=== PATIENT | female | born 1980 | race Caucasian/White ===

== ENCOUNTER 2017-07-15 17:35 | Inpatient (IN) | payer BC ==
[~2017-07-15] VITALS: Ht 152.4 cm; Wt 66.5 kg
[2017-07-15] VITALS (195 sets, daily range): BP systolic 140; BP diastolic 93; PULSE 107; TEMP 98.6; O2SAT 92–100
[~2017-07-15 17:35] MED LIST: BCP TD; LORTAB PO; MOTRIN 600600 MG/TAB PO; PERCOCET 325 MG1 TA2 PO; PHENERGAN 25 TA25 MG PO; PRENATAL1 TA1 PO
[2017-07-15] MEDS ORDERED: PREDNISONE10 MG PO (17:59)
[2017-07-15] MEDS ORDERED: SYMBICORT (18:00)
[2017-07-15] MEDS ORDERED: DIFLUCAN150 MG PO (18:00)
[2017-07-15] MEDS ORDERED: [UNRECOGNIZED DRUG - OTHER] (18:00)
[2017-07-15] MEDS ORDERED: MONODOX100 PO (18:00)
[2017-07-15 18:05] LABS: ADD PATHOLOGY DIFF REVIEW NO; HEMATOCRIT 45.3 % (37.0-47.0); HEMOGLOBIN 14.7 g/dl (12.5-16.0); MEAN CELL VOLUME 99 fl (80.0-100.0); MEAN CORPUSCULAR HEMOGLOBIN 32 pg (27.0-31.0); MEAN CORPUSCULAR HGB CONC 33 g/dl (33.0-37.0); MEAN PLATELET VOLUME 10.6 fl (7.4-10.4); PLATELET COUNT 402 K/mm3 (130-400); RED BLOOD COUNT 4.59 M/mm3 (4.10-5.30); WHITE BLOOD COUNT 18.8 K/mm3 (4.8-10.8)
[2017-07-15 18:10] LABS: ARTERIAL BLD GAS O2 SATURATION 96.6 % (92-100); ARTERIAL BLD GAS TCO2 CT 22.1; ARTERIAL BLOOD GAS HCO3 20.6 meq/L (22-26); ARTERIAL BLOOD GAS PO2 102.9 mmHg (80-100); ARTERIAL BLOOD GAS pH 7.24 (7.35-7.45); OXYHEMOGLOBIN 95.8 %
[2017-07-15 18:11] LABS: ALLEN TEST YES; ALLENS TEST RESULT PASS; ATS? YES
[2017-07-15 18:14] LABS: ADJUSTED CALCIUM 9.2 mg/dL (8.4-10.2); ALANINE AMINOTRANSFERASE 18 U/L (9-52); ALBUMIN 4.1 gm/dL (3.5-5.0); ALKALINE PHOSPHATASE 47 U/L (50-136); ANION GAP 10 mmol/L (7-16); BILIRUBIN,TOTAL 0.5 mg/dL (0.0-1.0); BLOOD UREA NITROGEN 11 mg/dL (7-17); C-REACTIVE PROTEIN 0.7 mg/dL (0.0-0.9); CALCIUM 9.3 mg/dL (8.4-10.2); CARBON DIOXIDE 22 mmol/L (22-30); CHLORIDE 108 mmol/L (98-107); CREATINE KINASE 150 U/L (30-135); CREATININE, serum 0.71 mg/dL (0.52-1.25); GLUCOSE 99 mg/dL (74-106); POTASSIUM 4.4 mmol/L (3.4-5.0); SODIUM 140 mmol/L (137-145); TOTAL PROTEIN 8.1 gm/dL (6.4-8.2)
[2017-07-15 18:23] LABS: B-TYPE NATRIURETIC PEPTIDE 58 pg/mL (0-125)
[2017-07-15 18:29] LABS: INFLUENZA A NEGATIVE; INFLUENZA B NEGATIVE
[2017-07-15 18:30] LABS: TROPONIN-I < 0.012 ng/mL (0.000-0.034)
[2017-07-15 18:37] LABS: EOSINOPHIL 19 % (0-4); LYMPHOCYTE 27 % (20.0-51.0); NEUTROPHILS 50 % (42.0-75.2); PLATELET ESTIMATE INCREASED (NORMAL); TOTAL CELLS COUNTED 100
[2017-07-15 19:46] LABS: ARTERIAL BLD GAS TCO2 CT 20.8; ARTERIAL BLOOD GAS BASE EXCESS -4.4 (-2-2); ARTERIAL BLOOD GAS HCO3 19.7 meq/L (22-26); ARTERIAL BLOOD GAS PO2 97.8 mmHg (80-100); ARTERIAL BLOOD GAS pH 7.38 (7.35-7.45); OXYHEMOGLOBIN 96.1 %
[2017-07-15 19:47] LABS: ALLEN TEST NO; ATS? YES
[2017-07-15] MEDS ORDERED: PROMETHAZINE H118 ML PO (20:41)
[2017-07-15] MEDS ORDERED: ALBUTEROL0.83 MG/ML IH (20:42)
[2017-07-16] VITALS (796 sets, daily range): BP systolic 104–147; BP diastolic 57–107; PULSE 84–124; TEMP 97.1–98.1; O2SAT 93–100
[2017-07-16 03:12] LABS: ALLEN TEST NO; ARTERIAL BLD GAS O2 SATURATION 97.2 % (92-100); ARTERIAL BLD GAS TCO2 CT 19.8; ARTERIAL BLOOD GAS HCO3 18.9 meq/L (22-26); ARTERIAL BLOOD GAS PO2 92.3 mmHg (80-100); ARTERIAL BLOOD GAS pH 7.44 (7.35-7.45); ATS? YES; OXYHEMOGLOBIN 96.5 %
[2017-07-16 05:54] LABS: BASO % 0.5 % (0.0-2.0); EOS % 0.4 % (0-4.0); GRAN # 6.7 (1.4-6.5); GRAN % 87.2 % (42.2-75.2); LYMPH # 0.8 (1.2-3.4); LYMPH % 9.9 % (20.0-51.0); MEAN CELL VOLUME 98 fl (80.0-100.0); MEAN CORPUSCULAR HEMOGLOBIN 32 pg (27.0-31.0); MEAN CORPUSCULAR HGB CONC 33 g/dl (33.0-37.0); MEAN PLATELET VOLUME 11.2 fl (7.4-10.4); MONO # 0.1 (0.1-0.6); PLATELET COUNT 305 K/mm3 (130-400); RED BLOOD COUNT 3.88 M/mm3 (4.10-5.30); WHITE BLOOD COUNT 7.7 K/mm3 (4.8-10.8)
[2017-07-16 05:57] LABS: HEMOGLOBIN 12.5 g/dl (12.5-16.0)
[2017-07-16 06:01] LABS: CALCIUM 8.3 mg/dL (8.4-10.2); CREATININE, serum 0.6 mg/dL (0.52-1.25); POTASSIUM 3.9 mmol/L (3.4-5.0)
[2017-07-17] VITALS (7 sets, daily range): BP systolic 111–137; BP diastolic 72–80; PULSE 77–106; TEMP 97.5–99
[2017-07-17 09:58] LABS: ARTERIAL BLD GAS O2 SATURATION 95.6 % (92-100); ARTERIAL BLD GAS TCO2 CT 17.7; ARTERIAL BLOOD GAS BASE EXCESS -5.4 (-2-2); ARTERIAL BLOOD GAS HCO3 16.9 meq/L (22-26); ARTERIAL BLOOD GAS PO2 73.8 mmHg (80-100); ARTERIAL BLOOD GAS pH 7.45 (7.35-7.45); ATS? YES; OXYHEMOGLOBIN 95.1 %
[2017-07-18 04:01] VITALS: BP 145/80; PULSE 86; TEMP 99.2
[2017-07-18 07:42] VITALS: BP 144/87; PULSE 85; TEMP 98.9
[2017-07-18 07:53] LABS: CALCIUM 8.4 mg/dL (8.4-10.2); CREATININE, serum 0.58 mg/dL (0.52-1.25); POTASSIUM 3.8 mmol/L (3.4-5.0)
[2017-07-18 11:22] VITALS: BP 135/72; BP 155/58; PULSE 118; PULSE 87; TEMP 97.4; TEMP 98
[2017-07-18] MEDS ORDERED: LEVAQUIN 750MG750 M1 PO (11:27)
[2017-07-18] MEDS ORDERED: ATIVAN 0.50.5 MG/TAB PO (11:29)
[2017-07-18] MEDS ORDERED: PREDNISONE20 MG PO (11:33)
[2017-07-18] MEDS ORDERED: SYMBICORT (11:49)
[2017-07-18] MEDS ORDERED: [UNRECOGNIZED DRUG - OTHER] (11:49)
== END 2017-07-18 13:20 | disposition home or self-care (01) | DRG 189 ==
LOC: COL.ER 17:35 → MEDICAL 19:37 → ICU 19:37 → MEDICAL 07-16 17:58 → ICU 07-16 17:58 → MEDICAL 07-18 13:20
PROVIDERS: Emergency Medicine; Family Medicine; Internal Medicine Critical Care Medicine; Nurse Practitioner
DX: J96.01 Acute respiratory failure with hypoxia (principal); J45.901 Unspecified asthma with (acute) exacerbation; E87.2 Acidosis; J96.02 Acute respiratory failure with hypercapnia
CPT/HCPCS: 99223-AI; 99232-AI; 99239; J1650; J1885; J1956; J2060; J2405; J2920; J2930; J7030; Q9967

== ENCOUNTER 2017-11-04 17:08 | Emergency (ER) | payer BC ==
[~2017-11-04] VITALS: Ht 172.7 cm; Wt 63.6 kg
[~2017-11-04 17:08] MED LIST changes: +ALBUTEROL0.83 MG/ML IH; +ATIVAN 0.50.5 MG/TAB PO; +DIFLUCAN150 MG PO; +LEVAQUIN 750MG750 M1 PO; +MONODOX100 PO; +PREDNISONE10 MG PO; +PREDNISONE20 MG PO; +PROMETHAZINE H118 ML PO; +SYMBICORT; +[UNRECOGNIZED DRUG - OTHER]
[2017-11-04 17:14] VITALS: BP 143/67; TEMP 97.7
[2017-11-04] MEDS ORDERED: 00186-0370-20 IH (17:38)
[2017-11-04] MEDS ORDERED: NORCO 325 MG-51 TAB PO (18:51)
[2017-11-04] MEDS ORDERED: ZOFRAN 4MG T4 MG/TAB PO (18:52)
[2017-11-04 19:02] VITALS: PULSE 80
== END 2017-11-04 19:00 | disposition home or self-care (01) ==
LOC: COL.ER 17:08
DX: S06.0X9A Concussion with loss of consciousness of unspecified duration, initial encounter (principal); S00.83XA Contusion of other part of head, initial encounter; S70.01XA Contusion of right hip, initial encounter; J45.909 Unspecified asthma, uncomplicated; Z88.8 Allergy status to other drugs, medicaments and biological substances; Y04.0XXA Assault by unarmed brawl or fight, initial encounter; Y92.009 Unspecified place in unspecified non-institutional (private) residence as the place of occurrence of the external cause